=== PATIENT | female | born 1955 | race Caucasian/White ===

== ENCOUNTER → 2021-05-14 | Outpatient (CLI) | payer OTHER ==
[~2021-05-14] MED LIST: B-12 IM; BACTRIM DS TAB1 EACH PO; BIOFREEZE118 ML TP; HYDROCODONE-APA1 TA1 PO; HYDROXYZINE HCL25 M1 PO; KEFLEX500 MG PO; LOPRESSOR50 PO; OMEPRAZOLE 20 M20 MG PO; PERCOCET PO; TOPAMAX 100 MG100 MG PO; WELLBUTRIN XL150 MG PO; ZOLOFT50 MG PO
== END ==
LOC: HYPER 09:20
PROVIDERS: ATTEND Emergency Medicine
DX: L97.822 Non-pressure chronic ulcer of other part of left lower leg with fat layer exposed (principal); L97.812 Non-pressure chronic ulcer of other part of right lower leg with fat layer exposed; L03.116 Cellulitis of left lower limb; L30.9 Dermatitis, unspecified; I89.0 Lymphedema, not elsewhere classified; R60.0 Localized edema; I87.2 Venous insufficiency (chronic) (peripheral); G20 Parkinson's disease; R26.89 Other abnormalities of gait and mobility; F17.290 Nicotine dependence, other tobacco product, uncomplicated; F32.9 Major depressive disorder, single episode, unspecified; F41.9 Anxiety disorder, unspecified; Z96.651 Presence of right artificial knee joint; Z96.611 Presence of right artificial shoulder joint; Z96.612 Presence of left artificial shoulder joint